=== PATIENT | female | born 1945 | race Caucasian/White ===

== ENCOUNTER 2019-01-16 07:24 | Day surgery (SDC) | payer MEDICARE, BC ==
--- NOTE | 2019-01-16 06:10 | History and Physical - Fer[place] ---
CHIEF COMPLAINT/HISTORY OF CHIEF COMPLAINT: This patient presents with a history of intractable lumbar radiculopathy. In 2007 this patient had a spinal cord stimulator and peripheral nerve stimulator implanted. Although initially quite successful over the last several years the system has begun to fail. She was given the option to remove or remove and replace and she opted to replace. A [employer] spinal cord stimulator trial was conducted with 75+% pain control. Due to the failure of all therapy and the success of the trial and the failure of her current indwelling system, she is here for removal and replacement with [employer]. PAST MEDICAL HISTORY: Legally blind, vascular disease, chronic peripheral edema, and degenerative arthritis. PAST SURGICAL HISTORY: section, hysterectomy, shoulder surgery, pelvic surgery and stimulator implant. MEDICATIONS ON ADMISSION: List to be provided. ALLERGIES: SULFA. FAMILY/PSYCHOSOCIAL HISTORY: Social history - Caffeine. Family history - Not known. SYSTEMS REVIEW: The patient is appropriate in no acute distress. PHYSICAL EXAMINATION: Height is 4'10", weight is 200 pounds. No vital signs. HEENT: Within normal limits. LUNGS: Clear. HEART: Rapid and regular. ABDOMEN: Nontender. MUSCULOSKELETAL: Examination of the musculoskeletal system shows the incisional sites for the peripheral stimulator, epidural stimulator and the generator. All of the incisions are intact. Primary pain pattern to low back, bilateral leg right greater than left. There are mild motor and sensory abnormalities to the right leg. Ambulation antalgic, but no assistive device utilized. NEUROLOGIC: Cranial nerves are intact. IMPRESSION: 1. LUMBAR RADICULOPATHY, ICD-10 CODE M54.16 AND M54.17. 2. NONFUNCTIONAL SPINAL CORD STIMULATOR AND INTERNAL GENERATOR. PLAN: With the success of the trial, she is here for implantation of a permanent system and removal of the nonfunctional indwelling system. We will try as much as possible to use the original incision. Patient understands this may not be possible. The potential risks, side effect and complications have all been reviewed and discussed. The procedure will be outpatient although an overnight stay will be evaluated. JOB NUMBER: [id number] MTDD
[~2019-01-16 07:24] MED LIST: ACETAMINOPHEN 1,000 MG/100 ML BTL IVPB ONE; CEFAZOLIN 2 Gram 2 GM/50 ML BAG IVPB ONE; FAMOTIDINE 20MG TABLET PO ONE; MECLIZINE 25 MG TABLET PO ONE; METOCLOPRAMIDE 10 MG TABLET PO ONE
[2019-01-16] MEDS ORDERED: LIDOCAINE 2% MDV (20MG/ML) 20ML VIAL IV ONE (07:25)
[2019-01-16] MEDS ORDERED: 0.9 % SODIUM CHLORIDE 10 ML VIAL IVP ONE (07:25)
[2019-01-16] MEDS ORDERED: FENTANYL PF 100MCG/2ML VIAL IV ONE (07:25)
[2019-01-16] MEDS ORDERED: CEFAZOLIN 1G VIAL IVP ONE (07:25)
[2019-01-16] MEDS ORDERED: MIDAZOLAM HCL 2MG/2ML VIAL IV ONE (07:25)
[2019-01-16] MEDS ORDERED: KETAMINE HCL 100MG/1ML VIAL INJ ONE (07:25)
[2019-01-16] MEDS ORDERED: PROPOFOL 10 MG/ML VIAL IV ONE (07:25)
[2019-01-16] MEDS ORDERED: RINGERS SOLUTION,LACTATED 1,000 ML IV ONE ×2 (08:29→10:15)
[2019-01-16] MEDS ORDERED: LIDOCAINE 1% W/EPI 1:100,000 MDV 20 ML VIAL SQ ONE (10:38)
[2019-01-16] MEDS ORDERED: BUPIVACAINE 0.5% W/EPI MPF 30 ML VIAL SQ ONE (10:39)
[2019-01-16] MEDS ORDERED: FENTANYL PF 100MCG/2ML VIAL IVP ONE (11:07)
[2019-01-16] MEDS ORDERED: METOCLOPRAMIDE HCL 10 MG/2 ML VIAL IVP PRN (12:30)
[2019-01-16] MEDS ORDERED: ACETAMINOPHEN 325 MG TAB PO PRN (12:30)
[2019-01-16] MEDS ORDERED: SENNOSIDES/DOCUSATE SODIUM UD CAPSULE PO PRN ×2 (12:30)
[2019-01-16] MEDS ORDERED: DIPHENHYDRAMINE HCL 25 MG CAPSULE PO PRN ×2 (12:30)
[2019-01-16] MEDS ORDERED: HYDROMORPHONE HCL 2 MG/ML VIAL IM PRN ×2 (12:30)
[2019-01-16] MEDS ORDERED: OXYCODONE/APAP 10MG-325MG TABLET PO PRN ×2 (12:30)
[2019-01-16] MEDS ORDERED: HYDROCODONE/APAP 7.5/325MG TABLET PO PRN ×2 (12:30)
[2019-01-16] MEDS ORDERED: METOCLOPRAMIDE 10 MG TABLET PO PRN (12:30)
[2019-01-16] MEDS ORDERED: AL HYDROX/MAG HYDROX 30ML UD PO PRN (12:30)
[2019-01-16] MEDS ORDERED: DIPHENHYDRAMINE HCL 50 MG/ML VIAL IVP PRN ×2 (12:30)
[2019-01-16] MEDS ORDERED: TEMAZEPAM 15 MG CAPSULE PO PRN ×2 (12:30)
[2019-01-16] MEDS: ACETAMINOPHEN 325 MG TAB PO PRN ×2 (13:32→21:17)
[2019-01-16] MEDS: CEFAZOLIN 2 Gram 2 GM/50 ML BAG IVPB SCH (18:00)
[2019-01-16] MEDS ORDERED: 0.9 % SODIUM CHLORIDE 10ML SYR IVP SCH (22:00)
[2019-01-17] MEDS: CEFAZOLIN 2 Gram 2 GM/50 ML BAG IVPB SCH ×2 (00:37→07:52)
[2019-01-17] MEDS ORDERED: PANTOPRAZOLE SODIUM 40 MG TABLET PO SCH (07:00)
--- NOTE | 2019-01-17 20:44 | RADIOLOGY REPORT ---
EXAM: SPINE, 1 VIEW HISTORY: SPINAL CORD STIMULATOR AND GENERATOR IMPLANT. TECHNIQUE: Single AP supine view of the spine is obtained including the thoracic and lumbar portions. COMPARISON: Intraoperative radiographs dated 01/16/2019. FINDINGS: There is evidence of a dual-lead intraspinal stimulator appearing to enter the spinal canal at the T12-L1 level. Lead tips project at the T6-T7 level. The extraspinal portions of the leads extend laterally to the right flank region, where there is connection to a stimulator generator. Surgical skin chevy are noted in the upper paraspinal and lower paraspinal regions as well as in the right flank. No acute fracture is seen. No lytic or blastic bone lesion. Multilevel degenerative changes are scattered throughout the visualized spine. IMPRESSION: DUAL-LEAD INTRASPINAL STIMULATOR IN PLACE, DETAILED ABOVE. JOB NUMBER: [id number] MTDD
--- NOTE | 2019-01-21 08:20 | Operative Note ---
DATE OF SURGERY: 01/16/2019 PREOPERATIVE DIAGNOSES: 1. Intractable lumbar radiculopathy, ICD10 code M54.16 and M54.17. 2. Two peripheral nerve spinal cord stimulators internal generator with one epidural spinal cord stimulator, all 3 leads nonfunctional. POSTOPERATIVE DIAGNOSIS: 1. Fluoroscopic-guided incision, subcutaneous dissection, and removal of 2 implanted spinal cord stimulators. 2. Incision, subcutaneous dissection, and removal of internal pulse generator right posterior gluteal margin. 3. Incision, subcutaneous dissection, and removal of single one Octipolar epidural implanted spinal cord stimulator. 4. Fluoroscopic-guided epidural access T11-12, curved access Epimed needle with loss of resistance, placement of spinal cord stimulator lead 1 [employer] Infinion 16, 6 electrodes positioned left T7. 5. Fluoroscopic-guided epidural access left T12-L1, curved access Epimed needle with loss of resistance, placement of spinal cord stimulator lead 2 [employer] Infinion 16, 6 electrodes positioned right T7. 6. Complex programming of lead 1 over 20 minutes followed by complex programming of lead 2 over 20 minutes. 7. Incision and subcutaneous dissection and anchoring of lead 1 and lead 2 to supraspinous fascia with a [employer] locking anchor. 8. Revision of right posterior gluteal margin pouch to accommodate new generator, [employer] programmable rechargeable WaveWriter. 9. Tunneling between midline lead pouch and a generator pouch, tunneling 2 leads into generator pouch, each lead interfaced with generator. 10. Placement of generator pouch secured to posterior fascia with nonabsorbable suture, placement of leads into pouch, closure of both incisions using Vicryl for fascia and chevy for skin. Closure of 2 peripheral nerve stimulator incisions, Vicryl for fascia, chevy for skin. OpSite dressing with Tegaderm placed over each of the 4 incisional sites. 11. Complex programming internal generator home use 2 stimulators recovery room 20 minutes. ANESTHESIA: Local with sedation. ANESTHESIA PROVIDER: Sushma Freeman INDICATION: This patient presents with a history of intractable lumbar radiculopathy. Due to the failure of therapies approximately 11 years ago, a single spinal cord stimulator lead and 2 peripheral nerve stimulator leads with internal generator were implanted. Over the years, the system initially appeared to be working quite well. Over the last year, the system began to fail. Multiple attempts at reprogramming were unsuccessful. Computer assessment identified multiple electrode failures as well as generator failure. She was given the option to remove or replace. She opted to replace. We are replacing with a [employer] Octipolar two 16-electrode leads and generator. PROCEDURE: Intravenous line, vital sign monitoring, IV sedation. Prepped and draped with sterile technique. Patient positioned prone. Under imaging with local anesthetic, 2 incisions for the peripheral nerve stimulators, one left and one right of the midline, were infiltrated approximating L5. After the incisions, subcutaneous dissection was conducted to the leads. Leads and their anchoring suture were removed intact. The generator at the right posterior gluteal margin incisional site infiltrated, incision made, and subcutaneous dissection was conducted to open the pouch. The generator was exteriorized and cut from the 2 peripheral leads. A midline incision approximating T12-L1 was infiltrated, incision made, and subcutaneous dissection was conducted to the single epidural Octipolar lead. The lead was removed along with its anchoring suture intact. All electrodes were accounted for. From the left at T11-12 and 12-1, skin infiltrated using 2 separate curved access Epimed needles with loss of resistance, the space was accessed. At 11-12, spinal cord stimulator lead 1, a [employer] Infinion 16, 6 electrodes positioned left of the midline T7. With the access at 12-1, spinal cord stimulator lead 2, [employer] Infinion 16, 6 electrodes positioned right of the midline at T7. With awake, alert, complex programming of 2 leads each lead over 20 minutes performed establishing stimulation pain control to all the appropriate areas. She was given the option to implant or remove. She opted to implant. She was re- sedated. An incision made and subcutaneous dissection was conducted to supraspinous fascia. The needles were removed, and then each lead was anchored to the supraspinous fascia with a [employer] locking anchor and nonabsorbable suture. The previous pouch at the right posterior gluteal margin was widened and revised to accommodate the new generator. Antibiotic irrigation and Bovie for hemostasis at all sites. A tunneling tool was used to carry the leads from their incision into the generator pouch, and then each lead was interfaced to the generator. The generator was placed into the pouch and secured to the fascia with nonabsorbable suture. Leads were placed in their own pouch and then both incisions including the 2 peripheral lead incisions were closed using Vicryl for fascia and chevy for skin. Four incisions total. OpSite dressing with Tegaderm was then used to cover each of the incisional sites. She tolerated the surgery without difficulty. There was no unusual pain or symptom patterns in the extremities. Full functionality noted. She was transferred to recovery room stable. When fully awake and alert, complex programming of the internal generator performed over 20 minutes reestablishing stimulation and pain control to all appropriate areas. Because of her history, it was felt best to keep her overnight for observation and discharge in the morning. DISCHARGE INSTRUCTIONS: 1. The sites to remain clean and dry. No showering or bathing in any way that would disrupt dressings. 2. Standard medications resumed including the antibiotic Levaquin 500 mg a day for 14 days. 3. The office to contact the patient in the next 12-24 hours for an observation in 7-10 days. Until then, she is to keep her activities low and controlled. She will be evaluated at that time and the chevy removed. Antibiotic Levaquin 500 mg once a day for 14 days has been provided. All instructions were provided. She will be seen in 7-10 days. BRIAN
== END 2019-01-17 09:00 | disposition home or self-care (01) ==
LOC: SUR 07:24 → MEDSURG 11:52 → SUR 01-17 09:00
PROVIDERS: ATTEND Pain Medicine Interventional Pain Medicine
DX: M54.16 Radiculopathy, lumbar region (principal); M54.17 Radiculopathy, lumbosacral region; K21.9 Gastro-esophageal reflux disease without esophagitis; K22.10 Ulcer of esophagus without bleeding; H54.8 Legal blindness, as defined in USA; E66.9 Obesity, unspecified
CPT/HCPCS: 62350; 62362; 01936; 95972; 72020; J3010; J0690 ×2; J3490; C1820; C1883; J7120